=== PATIENT | male | born 1990 | race Two or more races ===

== ENCOUNTER 2020-06-05 10:26 | Outpatient (REF) | payer OTHER, SELFPAY | END 2020-06-05 10:27 | disposition home or self-care (01) | LOC: HO.LAB 10:26 | PROVIDERS: PCP Family Medicine; Visit Provider Internal Medicine | DX: Z20.828 Contact with and (suspected) exposure to other viral communicable diseases (principal) | CPT/HCPCS: C9803; U0003 ==

== ENCOUNTER 2020-06-26 08:45 | Outpatient (REF) | payer OTHER, SELFPAY ==
[2020-06-26 11:18] LABS: MANUAL DIFF FLAG NO
[2020-06-26 11:33] LABS: Basophils Absolute Auto 0.1 X10*3/uL (0.0-0.2); Basophils Percent Auto 1.1 % (0-2); Eosinophils Absolute Auto 0.5 X10*3/uL (0.0-0.4); Eosinophils Percent Auto 9.5 % (0-4); Hematocrit 40.9 % (42-52); Hemoglobin 13.7 g/dl (14.0-18.0); Imm Gran Abs Auto 0.02 X10*3/uL (0.00-0.03); Imm Gran Pct Auto 0.4 % (0.0-0.4); Lymphocytes Absolute Auto 1.5 X10*3/uL (1.2-4.9); Lymphocytes Percent Auto 26.1 % (20-40); Mean Corpuscular HGB Conc 33.5 g/dl (31.0-36.0); Mean Corpuscular Hemoglobin 30.3 pg (27.0-33.0); Mean Corpuscular Volume 90.5 fL (80-98); Mean Platelet Volume 10.5 fL (9.4-12.4); Monocytes Absolute Auto 0.5 X10*3/uL (0.1-1.2); Monocytes Percent Auto 9.5 % (2-11); Neutrophils Percent Auto 53.4 % (45-73); Platelet Count 288 X10*3/uL (160-400); Red Blood Count 4.52 X10*6/uL (4.60-5.80); Red Cell Distribution Width 10.9 % (11.0-16.0); White Blood Count 5.6 X10*3/uL (4.8-10.8)
[2020-06-26 11:59] LABS: Alanine Aminotransferase 53 U/L (0-40); Albumin Level 4.4 g/dL (3.5-5.0); Alkaline Phosphatase 52 U/L (39-117); Anion Gap 10 (12-20); Aspartate Amino Transferase 43 U/L (5-37); Bilirubin Total 0.9 mg/dL (0.0-1.0); Blood Urea Nitrogen 15 mg/dL (9-16); Calcium 9.3 mg/dL (8.4-10.2); Carbon Dioxide 29 mmol/L (22-29); Chloride 102 mmol/L (96-108); Estimated Glomerular Filt Rate > 60; Glucose Random 90 mg/dL (60-115); Potassium 4.3 mmol/l (3.3-5.1); Sodium 137 mmol/L (135-145)
[2020-06-26 12:12] LABS: Thyroid Stimulating Hormone 1.09 uIU/mL (0.32-4.0)
[2020-06-27 12:12] LABS: Triiodothyronine T3 Total 116 ng/dL (76-181)
== END 2020-06-26 08:46 | disposition home or self-care (01) ==
LOC: HO.WFDLDS 08:45
PROVIDERS: Visit Provider Family Medicine
DX: D58.9 Hereditary hemolytic anemia, unspecified (principal); R63.5 Abnormal weight gain
CPT/HCPCS: 36415; 80053; 84443; 84480; 85025

== ENCOUNTER 2020-08-04 13:39 | Outpatient (REF) | payer OTHER, SELFPAY ==
--- NOTE | ~2020-08-04 | US_ITS ---
EXAMINATION: US ABDOMEN LIMITED WITH LIVER ELASTOGRAPHY CLINICAL INFORMATION: Elevated transaminase. COMPARISON: None. TECHNIQUE: Real-time imaging of the abdominal viscera. Noninvasive ultrasound liver fibrosis assessment is performed using Raudel ElastPQ point quantification shear wave elastography (pSWE) with a C5-2 MHz transducer. Multiple elastography samples are obtained. FINDINGS: PANCREAS: The visualized pancreatic head and body are normal in appearance. The remainder of the pancreas is obscured from visualization by the overlying bowel gas. LIVER: The liver demonstrates normal size, contour and echogenicity. No focal lesion or intrahepatic biliary duct dilatation. The right lobe measures 16.3 cm in length. The left lobe measures 9.8 cm in length. There is hepatopedal flow seen in the portal vein on Doppler exam. Shear wave liver elastography median stiffness is 1.67 m/s (reference: normal median stiffness is 1.3 m/s or less). IQR/median stiffness to assess sampling precision is 0.13 (reference: good quality data set is IQR/median stiffness of 0.15 or less). GALLBLADDER: Normal. The gallbladder is physiologically distended without evidence of stones, sludge, polyps, wall thickening, or pericholecystic fluid. COMMON BILE DUCT: Normal in caliber measuring 0.4 cm in diameter. RIGHT KIDNEY: Normal. No hydronephrosis. No renal calculi or focal parenchymal lesions. The kidney measures 11.5 cm in maximum dimension. FREE FLUID: None. US/US abdomen jo w elastography IMPRESSION: 1. Unremarkable liver. 2. Visualized pancreas, gallbladder, CBD, and the right kidney are unremarkable. The tail of the pancreas is not seen. 3. Liver elastography: Median stiffness of 1.67. 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 REFERENCE: Society of Radiologists in Ultrasound Liver Stiffness Thresholds (2020): LIVER STIFFNESS THRESHOLDS: *Liver Stiffness equal or less than 1.3 m/s: High probability of being normal. *Liver Stiffness less than 1.7 m/s: In the absence of other known clinical signs, rules out compensated advanced chronic liver disease. *Liver Stiffness 1.7-2.1 m/s: Suggestive of compensated advanced chronic liver disease but need further test for confirmation. *Liver Stiffness over 2.1 m/s: Rules in compensated advanced chronic liver disease. *Liver Stiffness over 2.4 m/s: Suggestive of clinically significant portal hypertension. QUALITY OF DATA SET: *IQR/Median value equal or less than 0.15 implies a quality data set. *IQR/Median value over 0.15 implies a poor quality data set. SIGNIFICANT CHANGE FROM PRIOR EXAM: Significant change if liver stiffness measurement is 10% or greater from prior exam. OTHER CONSIDERATIONS: The stage of liver fibrosis may be overestimated in the setting of acute hepatitis, liver inflammation, elevated liver function tests, hepatic vascular congestion, obstructive cholestasis, non-fasting state, and infiltrative diseases such as amyloidosis and lymphoma. In some patients with NAFLD, the liver stiffness thresholds for compensated advanced chronic liver disease may be lower. In causes other than viral hepatitis and NAFLD, liver stiffness thresholds are not well established.
== END 2020-08-04 13:40 | disposition home or self-care (01) ==
LOC: HO.US 13:39
PROVIDERS: PCP Family Medicine; Visit Provider Family Medicine
DX: R74.01 Elevation of levels of liver transaminase levels (principal)
CPT/HCPCS: 76705; 76981

== ENCOUNTER → 2020-09-16 08:24 | Outpatient (BNVA) | payer OTHER, SELFPAY | PROVIDERS: PCP Family Medicine; Visit Provider Physician Assistant ==

== ENCOUNTER 2020-10-02 08:08 | Outpatient (REF) | payer OTHER, SELFPAY ==
[2020-10-02 12:04] LABS: Alanine Aminotransferase 53 U/L (0-40); Albumin Level 4.7 g/dL (3.5-5.0); Alkaline Phosphatase 59 U/L (39-117); Aspartate Amino Transferase 47 U/L (5-37); Bilirubin Direct 0.5 mg/dL (0.0-0.5); Bilirubin Total 1.3 mg/dL (0.0-1.0); Total Protein 7.5 g/dL (6.5-8.0)
[2020-10-02 12:15] LABS: Folate 14.7 ng/mL (> or = 4.0); Vitamin B12 652 pg/mL (200-900)
[2020-10-02 12:27] LABS: Free T4 (Free Thyroxine) 0.98 ng/dL (0.71-1.85)
[2020-10-02 13:36] LABS: Ferritin 265 ng/mL (20-250)
[2020-10-03 08:50] LABS: HBS Num1 1.83 mIU/mL (0-7.99); HBc Num1 0.08 S/CO (0.00-0.79); Hepatitis B Core Antibody Nonreactive (Nonreactive); ~Hepatitis B Surface Antibody NONREACTIVE (Nonreactive)
[2020-10-03 09:07] LABS: HBsAGNum1 0.16 S/CO (0.00-0.99); Hepatitis A Antibody IgM 0.11 Index (0-0.79); Hepatitis B Surface Antigen Negative (Negative); ~Hepatitis A Antibody IgM Nonreactive (Nonreactive); ~Hepatitis C Antibody Nonreactive (Nonreactive)
[2020-10-03 17:37] LABS: Mitochondrial Antibodies NEGATIVE (NEGATIVE)
[2020-10-03 23:52] LABS: Anti Nuclear Antibody Screen NEGATIVE (NEGATIVE)
[2020-10-04 10:02] LABS: Alpha 1 Anti-trypsin 138 mg/dL (83-199); Ceruloplasmin 24 mg/dL (18-36)
[2020-10-07 16:32] LABS: FIB-ALT 46 U/L (9-46); FIB-Alpha-2-Macroglobulin 146 mg/dL (106-279); FIB-Apolipoprotein A1 192 mg/dL (94-176); FIB-GGT 33 U/L (3-90); FIB-Haptoglobin 103 mg/dL (43-212); Liver Fibrosis Score 0.09; Liver Fibrosis Stage F0; Nec Inflam Act Grade A0-A1; Nec Inflam Act Score 0.21
[2020-10-08 23:32] LABS: Smooth Muscle Antibody <20 U (<20)
== END 2020-10-02 08:09 | disposition home or self-care (01) ==
LOC: HO.HMGCLDS 08:08
PROVIDERS: PCP Family Medicine; Visit Provider Physician Assistant
DX: R63.5 Abnormal weight gain (principal); R74.01 Elevation of levels of liver transaminase levels; R79.89 Other specified abnormal findings of blood chemistry; R74.8 Abnormal levels of other serum enzymes; D64.9 Anemia, unspecified
CPT/HCPCS: 36415; 80076; 81256; 81596; 82103; 82390; 82607; 82728; 82746; 84439; 86038; 86039; 86255; 86256; 86704; 86706; 86709; 86803; 87340

== ENCOUNTER → 2020-10-07 10:52 | Outpatient (BNVA) | payer OTHER, SELFPAY | PROVIDERS: PCP Family Medicine; Visit Provider Physician Assistant ==

== ENCOUNTER 2020-11-10 08:28 | Outpatient (REF) | payer OTHER, SELFPAY ==
[2020-11-10 11:23] LABS: MANUAL DIFF FLAG NO
[2020-11-10 11:38] LABS: Basophils Absolute Auto 0.1 X10*3/uL (0.0-0.2); Basophils Percent Auto 0.7 % (0-2); Eosinophils Absolute Auto 0.5 X10*3/uL (0.0-0.4); Eosinophils Percent Auto 6.9 % (0-4); Hematocrit 40.7 % (42-52); Hemoglobin 13.3 g/dl (14.0-18.0); Imm Gran Abs Auto 0.12 X10*3/uL (0.00-0.03); Imm Gran Pct Auto 1.6 % (0.0-0.4); Lymphocytes Absolute Auto 1.7 X10*3/uL (1.2-4.9); Lymphocytes Percent Auto 22.4 % (20-40); Mean Corpuscular HGB Conc 32.7 g/dl (31.0-36.0); Mean Corpuscular Hemoglobin 30.4 pg (27.0-33.0); Mean Corpuscular Volume 92.9 fL (80-98); Mean Platelet Volume 10.5 fL (9.4-12.4); Monocytes Absolute Auto 0.6 X10*3/uL (0.1-1.2); Monocytes Percent Auto 7.7 % (2-11); Neutrophils Absolute Auto 4.7 X10*3/uL (2.0-8.3); Neutrophils Percent Auto 60.7 % (45-73); Platelet Count 344 X10*3/uL (160-400); Red Blood Count 4.38 X10*6/uL (4.60-5.80); Red Cell Distribution Width 11.3 % (11.0-16.0); White Blood Count 7.7 X10*3/uL (4.8-10.8)
[2020-11-10 12:10] LABS: Bilirubin Direct 0.4 mg/dL (0.0-0.5)
[2020-11-10 12:21] LABS: TSH reflex Free T4 1.21 uIU/mL (0.32-4.0)
[2020-11-10 12:30] LABS: Alanine Aminotransferase 33 U/L (0-40); Alkaline Phosphatase 44 U/L (39-117); Anion Gap 10 (12-20); Aspartate Amino Transferase 23 U/L (5-37); Bilirubin Direct 0.3 mg/dL (0.0-0.5); Blood Urea Nitrogen 16 mg/dL (9-16); Carbon Dioxide 28 mmol/L (22-29); Chloride 104 mmol/L (96-108); Cholesterol 177 mg/dL; Estimated Glomerular Filt Rate > 60; Glucose Fasting 88 mg/dL (60-99); HDL Cholesterol 68 mg/dL; LDL Cholesterol Calculated 100 mg/dl; Potassium 4.2 mmol/L (3.3-5.1); Sodium 138 mmol/L (135-145); Total Protein 6.4 g/dL (6.5-8.0); Triglycerides 48 mg/dL
== END 2020-11-10 08:29 | disposition home or self-care (01) ==
LOC: HO.HMGCLDS 08:28
PROVIDERS: Physician Assistant; PCP Family Medicine; Visit Provider Family Medicine
DX: Z00.00 Encounter for general adult medical examination without abnormal findings (principal); D58.9 Hereditary hemolytic anemia, unspecified; R74.01 Elevation of levels of liver transaminase levels
CPT/HCPCS: 36415; 80053; 80061; 80076; 82248; 84443; 85025

== ENCOUNTER 2021-03-24 09:00 | Outpatient (RCR) | payer OTHER, SELFPAY ==
--- NOTE | 2021-03-11 15:33 | MHC.PT.EP ---
[facility] [place] Office [place] Office [place] Office [address] Radha Armenta [address] [phone] F: [phone] F: [phone] F: [phone] F: [phone] Physical Therapy Plan of Care Date of Evaluation: Date of Surgery: NA Diagnosis: R KNEE PATELLAR TENDONITIS Assessment: Pt IS 30 YO M REFERRED TO PT FROM DR LECHUGA FOR R PATELLA TENONITIS (Pt REPORTS PAIN IS BOTH KNEES) OF A 5 YR HX WITHOUT INJURY. 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 REPORTS TYPICALLY HAS TO RUN FOR TRAINING WHICH DOES BOTHER HIS KNEE. PRESENTS WITH SXS OF PATELLOFEMORAL SYNDROME WITH SOME HYPERMOBIITY AND ASYMMETRY OF PATELLA B. SOME HS TIGHTNESS ALSO. OVERALL KNEE ROM AND STRENGTH WFLS. SHOULD BENEFIT FROM PT TO ADDRESS THESE ISSUES Frequency and Duration: The patient will be seen 2X/WK X 4 WKS Short Term Goals: 1. I HEP WITH DC EX PLAN 2. Pt ABLE TO SELF TAPE KNEE(S) WITH RELIEF OF SXS 3. INCREASED AWARENESS KNEE CARE Nursing Home Goals: 1. IMPROVED LEFI 2. DECREASED KNEE PAIN AT LEAST 50% WITH ADLS ([facility] STAIRS/RUNNING) Treatment Plan: Modalities to reduce pain, spasms and effusion. Manual therapy to restore motion and function. Therapeutic exercise to improve strength and flexibility. Neuromuscular re-education for posture and balance. Therapeutic activities to return to functional activities of daily living. Electronically signed by: JUAN DANIEL PAN PT Please sign and return to therapist. Thank you for your referral.
--- NOTE | 2021-04-03 10:35 | MHC.PT.DC ---
[facility] [place] Office [place] Office [place] Office [address] Radha Armenta [address] [phone] F: [phone] F: [phone] F: [phone] F: [phone] Physical Therapy Discharge Report Diagnosis: R KNEE PATELLAR TENDONITIS Date of Surgery: NA Date of Evaluation: 03/11/21 Date of Discharge: 04/03/21 Treatments to Date: 3 Cancellations to Date: No Shows to Date: Discharge Status: Patient Elected to Stop Recommend MD Follow-up Discharge Summary: Pt SEEN FOR INIT EVAL AND 2 VISITS THEN DISCHARGED SELF BECAUSE WORK IS TOO BUSY. PER ASSESSMENT BY ZIGGY GARAY PT,DPT AT LAST SCHEDULED PT APPT : 'Weakness/challenged with physioball activities; Pt issued written HEP: bridge over pball, bridge with HS curl, and prone LE raise.' PER INITIAL EVAL :Pt IS 30 YO M REFERRED TO PT FROM DR LECHUGA FOR R PATELLA TENONITIS (Pt REPORTS PAIN IS BOTH KNEES) OF A 5 YR HX WITHOUT INJURY. 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 REPORTS TYPICALLY HAS TO RUN FOR TRAINING WHICH DOES BOTHER HIS KNEE. PRESENTS WITH SXS OF PATELLOFEMORAL SYNDROME WITH SOME HYPERMOBIITY AND ASYMMETRY OF PATELLA B. SOME HS TIGHTNESS ALSO. OVERALL KNEE ROM AND STRENGTH WFLS. SHOULD BENEFIT FROM PT TO ADDRESS THESE ISSUES [ End ]' Electronically signed by: JUAN DANIEL PAN PT Please sign and return to therapist. Thank you for your referral.
== END 2021-04-03 10:35 | disposition home or self-care (01) ==
LOC: HO.PTWFD 09:00
PROVIDERS: PCP Family Medicine; Visit Provider Family Medicine
DX: M76.51 Patellar tendinitis, right knee (principal); M76.52 Patellar tendinitis, left knee
CPT/HCPCS: 97110; 97140; 97161; 97530

== ENCOUNTER 2021-10-02 08:06 | Outpatient (REF) | payer OTHER, SELFPAY ==
--- NOTE | ~2021-10-02 | MR_ITS ---
MRI OF THE BRAIN WITH AND WITHOUT IV CONTRAST INDICATION: Hearing loss, right ear. COMPARISON: None available. TECHNIQUE: Multiplanar multisequence MR imaging of the brain was obtained without and following the administration of 10 mL of Gadavist without complication with dedicated IAC pulse series. FINDINGS: The inner ear structures including the cochlea, vestibules, and semicircular canals exhibit preserved CSF signal intensity with no pathologic enhancement. The vestibular aqueducts are not enlarged. Cranial nerves VII and VIII complexes are normal in morphology. No enhancing CP angle/retrocochlear lesion. There is no pathologic intracranial enhancement. No parenchymal signal abnormality. No acute infarct on diffusion-weighted imaging. No intracranial hemorrhage on the gradient series. No hydrocephalus, extra-axial surface collection, or herniation. The midline intracranial structures are normal. Cerebellar tonsils are normally positioned. Craniocervical junction is normal. Osseous marrow signal intensity remains homogeneous. No significant soft tissue abnormality is appreciated. There is a moderate left mastoid effusion. MR/MR head/brain wo/w con IMPRESSION: - No retrocochlear pathology. - There is a moderate left mastoid effusion.
== END 2021-10-02 08:07 | disposition home or self-care (01) ==
LOC: HO.MRI 08:06
PROVIDERS: Visit Provider Family Medicine
DX: R51.9 Headache, unspecified (principal); H93.19 Tinnitus, unspecified ear; R26.89 Other abnormalities of gait and mobility; H91.91 Unspecified hearing loss, right ear
CPT/HCPCS: 70553; A9585

== ENCOUNTER 2021-10-13 09:28 | Outpatient (REF) | payer OTHER, SELFPAY ==
--- NOTE | 2021-10-13 14:51 | MHC.AU.ANO ---
Adult Audiological Evaluation Date of Visit: 10/13/21 Reason for Appointment: Audiological evaluation due to concern for decreased hearing and tinnitus. Mr. Awad reports that he started noticed difficulties hearing approximately two years ago and he feels it is gradually getting worse. He reports that he is often asking people to repeat themselves. He notes that he has been having frequent ear infections, with about three in the past year. His most recent ear infection was two weeks ago in the left ear, but he did not have it checked or treated. He additionally notes ringing in both ears that began in 2016. He notes that the tinnitus can be very bothersome and he has trouble sleeping due to it. Mr. 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 Does patient feel they have a hearing loss?: Yes If Yes, Which Ear?: Both Ears When Was Hearing Difficulty First Noticed?: 2020 Has hearing been tested previously?: Yes Previous Hearing Test Results: Through the Hearing Handicap Inventory: HHIE SCORE: 30 Based on HHIE score, patient has: Severe perceived hearing handicap Ear History: Recent Ear Drainage: Left Ear Recent Ear Pain: Left Ear Recent Ear Infections: Both ears, at least three in the past year Bothersome Tinnitus/Ringing/Noises in Ears: Both Ears History: Yes: [employer] [facility] [place], 7 years Medical History: Medical History: Reports that he recently had an MRI but has not received any results yet. Review of his medical records indicates that the MRI was ordered due to hearing loss, right ear and the MRI ruled out any retrocochlear pathology and indicated moderate left mastoid effusion. Previous PCP visits indicate complaints of imbalance, headaches, and difficulty with concentration. Allergies: NKA Medication List: Fluoxetine, bupropion Otoscopy: Right Ear: Unremarkable Left Ear: Tympanic membrane is retracted and red Tympanometry: Tympanometry performed due to: History of middle ear dysfunction Right Ear: Reduced Middle Ear Compliance (Type As) Left Ear: Reduced Middle Ear Compliance (Type As) Otoacoustic Emissions Frequency Range Used: 1.6-8 kHz Right Ear Results: Present 1600, 2764-0750 & 9739-7685 Hz. Reduced 2000 & 5000 Hz. Analysis: Present emissions suggest normal function in those cochlear regions. Reduced/Absent emissions may be related to cochlear dysfunction or may be consequence of middle-ear dysfunction. Left Ear Results: Present 1600, 5516-8445 & 9113-6661 Hz. Reduced 2000 & 5000 Hz. Analysis: Present emissions suggest normal function in those cochlear regions. Reduced/Absent emissions may be related to cochlear dysfunction or may be consequence of middle-ear dysfunction. Hearing Evaluation: Transducer(s) Used: Insert Earphones, Bone Conduction Method: Conventional Audiometry Stimuli Used: Pure Tones Right Ear: Description of Hearing: Normal hearing from 250-8000 Hz. Left Ear: Description of Hearing: Normal hearing from 250-8000 Hz. Speech Recognition Threshold (SRT): Method Used: Monitored Live Voice Stimuli Used: Spondee Words Right Ear: 15 dBHL Left Ear: 10 dBHL Word Discrimination: Method: Recorded Lists Word Lists Used: NU-6 Right Ear: 100% at 55 dBHL Left Ear: 96% at 55 dBHL Interpretation of Results: Today's evaluation indicates normal hearing sensitivity, middle-ear dysfunction, and slightly reduced otoacoustic emissions bilaterally. Middle-ear dysfunction and reduced OAEs do not appear to be impacting hearing sensitivity at this time. However, fluctuations in middle-ear function and frequent ear infections can cause intermittent decreases in hearing sensitivity. Recommendations: Audiological re-evaluation if changes are noted. Hearing protection should be used when around loud noise. If frequent ear infections continue, it is recommended that Mr. Awad see an television announcer. Discussed exacerbating factors of tinnitus and tinnitus management strategies. Diagnosis: Primary Diagnosis: H93.13 Tinnitus, Bilateral Secondary Diagnosis: H69.93 Unspecified Eustachian Tube Dysfunction, Bilateral Services Performed: Comprehensive Audiological Evaluation (CPT 26346) Diagnostic Otoacoustic Emissions (CPT 30831, 26+TC) Tympanometry (CPT 23034) Signature: Provider: Ja Agosto, CCC-A
== END 2021-10-13 09:29 | disposition home or self-care (01) ==
LOC: HO.SH 09:28
PROVIDERS: Visit Provider Family Medicine
DX: Z01.118 Encounter for examination of ears and hearing with other abnormal findings (principal); H93.13 Tinnitus, bilateral; H69.93 Unspecified Eustachian tube disorder, bilateral
CPT/HCPCS: 92557; 92567; 92588